=== PATIENT | female | born 1975 | race Caucasian/White ===

== ENCOUNTER 2018-06-18 18:56 | Emergency (ER) | payer OTHER ==
[2018-06-18] MEDS ORDERED: IBUPROFEN 200 MG TAB PO ONE (21:14)
--- NOTE | 2018-06-18 21:25 | ER ---
Nurse's Notes [facility] Name: Laura Patel Age: 42 yrs Sex: Female : 1975 Arrival Date: 06/18/2018 Time: 18:59 Bed 28 Private MD: Herb Ragland Diagnosis: Mallet finger of left finger(s) Presentation: 06/18 19:14 Presenting complaint: Patient states: Pain to left 4 th digit after catching a ball aj today at 1400. Transition of care: patient was not received from another setting of care. Onset of symptoms was June 18, 2018. Risk Assessment: Do you want to hurt yourself or someone else? Patient reports no desire to harm self or others. Initial Sepsis Screen: Does the patient meet any 2 criteria? No. Patient's initial sepsis screen is negative. Does the patient have a suspected source of infection? No. Patient's initial sepsis screen is negative. Care prior to arrival: None. 19:14 Method Of Arrival: Ambulatory aj 19:14 Acuity: BENJA 4 aj Triage Assessment: 19:15 General: Appears in no apparent distress. comfortable, Behavior is calm, cooperative, aj appropriate for age. Pain: Complains of pain in dorsal aspect of middle phalanx of left ring finger and dorsal aspect of proximal phalanx of left ring finger. Neuro: Level of Consciousness is awake, alert, obeys commands, Oriented to person, place, time, situation, Appropriate for age. Respiratory: Airway is patent Respiratory effort is even, unlabored, Respiratory pattern is regular, symmetrical. Derm: Skin is intact, is healthy with good turgor, Skin is pink, warm \T\ dry. normal. Musculoskeletal: Bony deformity noted of dorsal aspect of middle phalanx of left ring finger Reports pain in dorsal aspect of middle phalanx of left ring finger. Injury Description: Bruise sustained to dorsal aspect of middle phalanx of left ring finger. 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 - Social history:: Smoking status: Patient/guardian denies using tobacco. - Ebola Screening: : No symptoms or risks identified at this time. Screenin:44 Abuse screen: Denies threats or abuse. Denies injuries from another. Nutritional mg2 screening: No deficits noted. Tuberculosis screening: No symptoms or risk factors identified. Fall Risk None identified. Assessment: 20:42 General: Appears in no apparent distress. comfortable, Behavior is calm, cooperative. mg2 Pain: Complains of pain in dorsal aspect of proximal phalanx of left ring finger Pain does not radiate. Pain currently is 2 out of 10 on a pain scale. Quality of pain is described as aching, Pain began suddenly, \T\ 1400H today. Is intermittent. Neuro: Level of Consciousness is awake, alert, obeys commands, Oriented to person, place, time, situation. Cardiovascular: No deficits noted. Respiratory: No deficits noted. GI: No deficits noted. : No deficits noted. EENT: No deficits noted. Derm: Skin is intact, is healthy with good turgor, Skin is pink, warm \T\ dry. normal, Bruising that is dark purple, on dorsal aspect of proximal phalanx of left ring finger. Musculoskeletal: Circulation, motion, and sensation intact. Capillary refill < 3 seconds, Range of motion: limited in dorsal aspect of proximal phalanx of left ring finger. Injury Description: Bruise sustained to dorsal aspect of proximal phalanx of left ring finger is purple, was sustained \T\ 1400H today. Vital Signs: 19:15 BP 122 / 96; Pulse 116; Resp 20; Temp 98.8; Pulse Ox 99% on R/A; Weight 68.04 kg; aj Height 5 ft. 5 in. (165.10 cm); Pain 3/10; 20:41 BP 129 / 82; Pulse 102; Resp 17; Pulse Ox 100% on R/A; Pain 2/10; mg2 19:15 Body Mass Index 24.96 (68.04 kg, 165.10 cm) aj ED Course: 18:59 Patient arrived in ED. mr 19:00 Herb Ragland MD is Private Physician. mr 19:15 Triage completed. aj 19:15 Arm band placed on left wrist. Patient placed in waiting room, Patient notified of wait aj time. X-ray ordered. 20:15 [facility] Hutch[facility]C [facility]. snw 20:15 Abdelrahman Draper MD is Attending Physician. snw 20:27 Germán Erazo, FELIX is Primary Nurse. mg2 20:44 Patient has correct armband on for positive identification. mg2 20:44 No provider procedures requiring assistance completed. Patient did not have IV access mg2 during this emergency room visit. 21:03 X-ray completed. Portable x-ray completed in exam room. Patient tolerated procedure mh1 well. 21:06 XRAY Hand LEFT 3 View In Process Unspecified. EDMS 21:22 Moises Jackson MD is Referral Physician. snw 22:05 Aluminum finger splint applied to dorsal aspect of proximal phalanx of left ring finger mg2 done by HALI paula. Administered Medications: 21:07 Drug: Motrin 600 mg Route: PO; mg2 21:53 Follow up: Response: No adverse reaction; Marked relief of symptoms mg2 Outcome: 21:23 Discharge ordered by MD. snw 21:53 Discharged to home ambulatory. mg2 21:53 Condition: stable 21:53 Discharge instructions given to patient, Instructed on discharge instructions, follow up and referral plans. medication usage, Demonstrated understanding of instructions, follow-up care, medications, splint care, Prescriptions given X 3. 22:06 Patient left the ED. mg2 Signatures: Dispatcher [employer] EDMS Sierra Roberts RN RN aj Therrien, Shelly, CASEC SUPERVISOR [employer]-[place] Jenna Henderson [facility] Germán Erazo, FELIX RN mg2 Corrections: (The following items were deleted from the chart) 22:06 22:05 Aluminum finger splint applied to dorsal aspect of proximal phalanx of left ring mg2 finger mg2
--- NOTE | 2018-06-18 21:25 | EDPHYS ---
Physician Documentation [facility] Name: Laura Patel Age: 42 yrs Sex: Female : 1975 Arrival Date: 06/18/2018 Time: 18:59 Bed 28 Private MD: Herb Ragland ED Physician Abdelrahman Draper HPI: 06/18 21:42 This 42 yrs old Female presents to ER via Ambulatory with complaints of snw Finger Injury. 21:42 Trauma demographics: County: The injury occurred in [place] Location of Injury: The snw injury occurred at work, Date: June 18, 2018. Mechanism of injury: Crush injury: hard ball thrown and pt's left ring finger was struck on end. Associated injuries: The patient sustained dorsal aspect of distal phalanx of left ring finger, contusion, decreased range of motion, ecchymosis, painful injury, swelling. Onset: The symptoms/episode began/occurred suddenly, today. The patient has not experienced similar symptoms in the past. The patient has not recently seen a physician. pt has two children at home with influenza. 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 - Social history:: Smoking status: Patient/guardian denies using tobacco. - Ebola Screening: : No symptoms or risks identified at this time. ROS: 21:40 Constitutional: Negative for fever, chills, and weight loss, Eyes: Negative for injury, snw pain, redness, and discharge, ENT: Negative for injury, pain, and discharge, Neck: Negative for injury, pain, and swelling, Cardiovascular: Negative for chest pain, palpitations, and edema, Respiratory: Negative for shortness of breath, cough, wheezing, and pleuritic chest pain, Abdomen/GI: Negative for abdominal pain, nausea, vomiting, diarrhea, and constipation, Back: Negative for injury and pain, : Negative for injury, bleeding, discharge, and swelling, Skin: Negative for injury, rash, and discoloration, Neuro: Negative for headache, weakness, numbness, tingling, and seizure, Psych: Negative for depression, anxiety, suicide ideation, homicidal ideation, and hallucinations. 21:40 MS/extremity: Positive for injury or acute deformity, decreased range of motion, ecchymosis, swelling, tenderness, of the dorsal aspect of distal phalanx of left ring finger and dorsal aspect of middle phalanx of left ring finger. Exam: 21:29 Constitutional: This is a well developed, well nourished patient who is awake, alert, snw and in no acute distress. Head/Face: Normocephalic, atraumatic. Eyes: Pupils equal round and reactive to light, extra-ocular motions intact. Lids and lashes normal. Conjunctiva and sclera are non-icteric and not injected. Cornea within normal limits. Periorbital areas with no swelling, redness, or edema. ENT: Nares patent. No nasal discharge, no septal abnormalities noted. Tympanic membranes are normal and external auditory canals are clear. Oropharynx with no redness, swelling, or masses, exudates, or evidence of obstruction, uvula midline. Mucous membranes moist. Neck: Trachea midline, no thyromegaly or masses palpated, and no cervical lymphadenopathy. Supple, full range of motion without nuchal rigidity, or vertebral point tenderness. No Meningismus. Chest/axilla: Normal chest wall appearance and motion. Nontender with no deformity. No lesions are appreciated. Cardiovascular: Regular rate and rhythm with a normal S1 and S2. No gallops, murmurs, or rubs. Normal PMI, no JVD. No pulse deficits. 21:29 Respiratory: Lungs have equal breath sounds bilaterally, clear to auscultation and percussion. No rales, rhonchi or wheezes noted. No increased work of breathing, no retractions or nasal flaring. Abdomen/GI: Soft, non-tender, with normal bowel sounds. No distension or tympany. No guarding or rebound. No evidence of tenderness throughout. Back: No spinal tenderness. No costovertebral tenderness. Full range of motion. Skin: Warm, dry with normal turgor. Normal color with no rashes, no lesions, and no evidence of cellulitis. Neuro: Awake and alert, GCS 15, oriented to person, place, time, and situation. Cranial nerves II-XII grossly intact. Motor strength 5/5 in all extremities. Sensory grossly intact. Cerebellar exam normal. Normal gait. Psych: Awake, alert, with orientation to person, place and time. Behavior, mood, and affect are within normal limits. 21:29 Musculoskeletal/extremity: Extremities: grossly normal except: noted in the dorsal aspect of distal phalanx of left ring finger: contusion, decreased ROM, ecchymosis, swelling, tenderness. Vital Signs: 19:15 BP 122 / 96; Pulse 116; Resp 20; Temp 98.8; Pulse Ox 99% on R/A; Weight 68.04 kg; aj Height 5 ft. 5 in. (165.10 cm); Pain 3/10; 20:41 BP 129 / 82; Pulse 102; Resp 17; Pulse Ox 100% on R/A; Pain 2/10; mg2 19:15 Body Mass Index 24.96 (68.04 kg, 165.10 cm) aj MDM: 20:38 [facility] 21:41 Data reviewed: vital signs, nurses notes. Data interpreted: Pulse oximetry: on room air snw is 100 %. Interpretation: normal. Counseling: I had a detailed discussion with the patient and/or guardian regarding: the historical points, exam findings, and any diagnostic results supporting the discharge/admit diagnosis, the presence of at least one elevated blood pressure reading (>120/80) during this emergency department visit, radiology results, the need for outpatient follow up, to return to the emergency department if symptoms worsen or persist or if there are any questions or concerns that arise at home. Special discussion: I have referred the patient to see his PCP for further evaluation of high blood pressure. Based on the history and exam findings, there is no indication for further emergent testing or inpatient evaluation. I discussed with the patient/guardian the need to see the hand specialist for further evaluation of the symptoms. I discussed with the patient/guardian the need to see the orthopedic surgeon for further evaluation of the symptoms. I discussed with the patient/guardian the need to see the primary care provider for further evaluation of the symptoms. 06/18 19:14 Order name: XRAY Hand LEFT 3 View; Complete Time: 21:47 aj 06/18 21:21 Order name: Splint - Finger: place in hyperextension please; Complete Time: 21:53 snw Administered Medications: 21:07 Drug: Motrin 600 mg Route: PO; mg2 21:53 Follow up: Response: No adverse reaction; Marked relief of symptoms mg2 Disposition: 06/19 07:55 Co-signature as Attending Physician, Abdelrahman Draper MD I agree with the assessment and priscilla plan of care. Disposition: 06/18/18 21:23 Discharged to Home. Impression: Mallet finger of left finger(s). - Condition is Stable. - Discharge Instructions: Cast or Splint Care, Adult, Fever, Adult, Influenza, Adult, Mallet Finger, RICE for Routine Care of Injuries. - Prescriptions for Diclofenac Sodium 75 mg Oral Tablet Sustained Release - take 1 tablet by ORAL route 2 times per day; 30 tablet. promethazine 25 mg Oral Tablet - take 1 tablet by ORAL route every 6 hours As needed; 20 tablet. Tamiflu 75 mg Oral Capsule - take 1 tablet by ORAL route once daily for 10 days If flu symptoms worsen - take 1 orally twice daily until gone; 10 tablet. - Medication Reconciliation Form, Thank You Letter, Antibiotic Education, Prescription Opioid Use form. - Follow up: Emergency Department; When: As needed; Reason: Worsening of condition. Follow up: Moises Jackson MD; When: 1 - 2 days; Reason: Recheck today's complaints, Continuance of care, Re-evaluation by your physician. - Problem is new. - Symptoms are unchanged. Signatures: Dispatcher [employer] Sierra Qureshi, RN Abdelrahman Cifuentes MD MD cha Therrien, Shelly, PRODUCT SAFETY CONSULTANT-C PRODUCT SAFETY CONSULTANT-[employer] Germán Erazo RN RN mg2 Corrections: (The following items were deleted from the chart) 06/18 22:06 21:23 06/18/2018 21:23 Discharged to Home. Impression: Mallet finger of left finger(s). mg2 Condition is Stable. Forms are Medication Reconciliation Form, Thank You Letter, Antibiotic Education, Prescription Opioid Use. Follow up: Emergency Department; When: As needed; Reason: Worsening of condition. Follow up: Moises Jackson; When: 1 - 2 days; Reason: Recheck today's complaints, Continuance of care, Re-evaluation by your physician. Problem is new. Symptoms are unchanged. snw
--- NOTE | 2018-06-18 21:39 | RAD REPORT ---
EXAM DESCRIPTION: RAD -Hand Left 3 View - 06/18/2018 9:05 pm CLINICAL HISTORY: Left hand pain status post injury FINDINGS: A 17 millimeter avulsion intra-articular fracture involves the base of the fourth distal p halanx. No dislocation is seen. An additional 16 millimeter bony density lies along the dorsal aspect adjacent to the proximal portio n of the fourth middle phalanx. It is uncertain if that represents a sesamoid or additional avulsed b one fragment
[2018-06-18 23:31] VITALS: TEMP 98.8
[2018-06-18 23:33] VITALS: BP 129/82; O2SAT 100
== END 2018-06-18 22:06 | disposition home or self-care (01) ==
LOC: ER 18:56
DX: M20.012 Mallet finger of left finger(s) (principal); W21.00XA Struck by hit or thrown ball, unspecified type, initial encounter; Y93.9 Activity, unspecified; Y92.89 Other specified places as the place of occurrence of the external cause; Y99.8 Other external cause status
CPT/HCPCS: 99284